=== PATIENT | male | born 1945 | race Asian ===

== ENCOUNTER 2017-03-31 10:44 | Inpatient (IN) | payer OTHER ==
[~2017-03-31] VITALS: Ht 165.1 cm; Wt 80.2 kg
[2017-03-31] MEDS ORDERED: MORPHINE SULFATE 4 MG/ML, 1ML ONE ×2 (11:11→12:11)
[2017-03-31] MEDS ORDERED: NITROGLYCERIN OINT 2%, 1GM TP ONE ×2 (11:11→11:30)
[2017-03-31] MEDS ORDERED: ONDANSETRON 2MG/ML, 2ML ONE (11:11)
[2017-03-31] MEDS: MORPHINE SULFATE 4 MG/ML, 1ML IVPush PRN ×2 (11:20→12:13)
[2017-03-31] MEDS ORDERED: PLEASE ENTER ALLERGIES MC SCH ×2 (11:30)
[2017-03-31] MEDS ORDERED: SODIUM CHLORIDE 0.9% 1,000ML IVBOLUS ONE ×2 (11:30→15:30)
[2017-03-31] MEDS ORDERED: ONDANSETRON 2MG/ML, 2ML IVPush ONE (11:30)
[2017-03-31 11:43] LABS: HEMATOCRIT 50.9 % (39.2-51.8); HEMOGLOBIN 16.6 g/dL (13.7-18.0)
[2017-03-31 11:53] LABS: ASPARTATE AMINO TRANSFERASE 21 U/L (15-37); BLOOD UREA NITROGEN 14 mg/dL (7-18)
[2017-03-31 11:58] LABS: IS PT STATUS REG ER OR PRE ER? YES
[2017-03-31] MEDS ORDERED: CITA20TA9 PO (12:23)
[2017-03-31] MEDS ORDERED: CALC-118 PO (12:23)
[2017-03-31] MEDS ORDERED: HYDR25TA6 PO (12:23)
[2017-03-31] MEDS ORDERED: CITA10TA8 PO (12:23)
[2017-03-31] MEDS ORDERED: ASPI-621 PO (12:23)
[2017-03-31] MEDS ORDERED: FINA5TAB4 PO (12:23)
[2017-03-31] MEDS ORDERED: ASCO500T8 PO (12:23)
[2017-03-31] MEDS ORDERED: TAMS0.4C2 PO (12:23)
[2017-03-31] MEDS ORDERED: LISI-170 PO (12:23)
[2017-03-31] MEDS ORDERED: MAALOX/HYOSCYAMINE/LIDOCAINE 45 ML BTL PO ONE (12:30)
[2017-03-31] MEDS ORDERED: SODIUM CHLORIDE FLUSH 10ML SYR IVF ONE (12:30)
[2017-03-31] MEDS ORDERED: MAALOX/HYOSCYAMINE/LIDOCAINE 45 ML BTL ONE (12:33)
[2017-03-31] MEDS ORDERED: OMNIPAQUE 350 MG/ML, 100ML BOTTLE ONE (12:53)
[2017-03-31] MEDS ORDERED: ACETAMINOPHEN 325 MG TABLET PO PRN (15:30)
[2017-03-31] MEDS ORDERED: ONDANSETRON 2MG/ML, 2ML IVPush PRN (15:30)
[2017-03-31] MEDS ORDERED: ONDANSETRON ODT 4 MG PO PRN (15:30)
[2017-03-31] MEDS ORDERED: morphine SULFATE 10 MG/ML, 1ML IVPush PRN (15:30)
[2017-03-31] MEDS ORDERED: hydrALAzine 20 MG/ML, 1ML ONE (15:35)
[2017-03-31] MEDS: hydrALAzine 20 MG/ML, 1ML IVPush PRN (15:42)
[2017-03-31] MEDS ORDERED: HYDROcodone/APAP 5/325 TABLET ONE (15:58)
[2017-03-31] MEDS: HYDROcodone/APAP 5/325 TABLET PO PRN (16:00)
[2017-03-31 16:02] LABS: IS PT STATUS REG ER OR PRE ER? YES
[2017-03-31] MEDS ORDERED: CEFTRIAXONE PMX 1GM/50ML 50 ML ONE (16:47)
[2017-03-31] MEDS: CEFTRIAXONE PMX 1GM/50ML 50 ML IV SCH (16:58)
[2017-03-31] MEDS: SODIUM CHLORIDE 0.9% 1,000 ML IV SCH (20:07)
[2017-03-31] MEDS: METRONIDAZOLE PMX 500MG/100ML 100 ML IV SCH (20:08)
[2017-03-31] MEDS: HEPARIN 5,000 UNITS/ML, 1ML SQ SCH (20:08)
[2017-03-31] MEDS: ASCORBIC ACID 500 MG TABLET PO SCH (20:09)
[2017-03-31] MEDS: CALCIUM/VITAMIN D3 250-125 TABLET PO SCH (20:09)
[2017-03-31 20:34] VITALS: BP 152/79
[2017-03-31 22:33] LABS: IS PT STATUS REG ER OR PRE ER? NO
[2017-04-01 03:38] VITALS: BP 155/82
[2017-04-01] MEDS: HEPARIN 5,000 UNITS/ML, 1ML SQ SCH ×3 (03:46→23:28)
[2017-04-01] MEDS: METRONIDAZOLE PMX 500MG/100ML 100 ML IV SCH ×3 (03:46→23:28)
[2017-04-01 05:59] LABS: HEMATOCRIT 45.9 % (39.2-51.8); WHITE BLOOD COUNT 10.1 x10^3/uL (3.4-10)
[2017-04-01 06:33] LABS: ASPARTATE AMINO TRANSFERASE 20 U/L (15-37); BLOOD UREA NITROGEN 12 mg/dL (7-18)
[2017-04-01 08:45] VITALS: BP 153/75
[2017-04-01] MEDS: SODIUM CHLORIDE 0.9% 1,000 ML IV SCH ×2 (09:13→21:44)
[2017-04-01] MEDS: PANTOPRAZOLE 40 MG IV IVPush SCH (09:13)
[2017-04-01] MEDS: TAMSULOSIN 0.4 MG CAP.ER.24H PO SCH (09:13)
[2017-04-01] MEDS: LISINOPRIL 20 MG TABLET PO SCH (09:14)
[2017-04-01] MEDS: ASPIRIN 81 MG TABLET EC PO SCH (09:14)
[2017-04-01] MEDS: FINASTERIDE 5 MG TABLET PO SCH (09:14)
[2017-04-01] MEDS: CALCIUM/VITAMIN D3 250-125 TABLET PO SCH ×2 (09:15→21:43)
[2017-04-01] MEDS: CITALOPRAM 10 MG TABLET PO SCH (09:15)
[2017-04-01] MEDS: ASCORBIC ACID 500 MG TABLET PO SCH ×2 (09:15→21:43)
[2017-04-01] MEDS: CEFTRIAXONE PMX 1GM/50ML 50 ML IV SCH (17:29)
[2017-04-01 17:33] VITALS: BP 189/97
[2017-04-01] MEDS: hydrALAzine 20 MG/ML, 1ML IVPush PRN (17:36)
[2017-04-01] MEDS ORDERED: BUPIVACAINE/PF-EPI 0.5% 1:200K ONE (17:53)
[2017-04-01] MEDS ORDERED: FENTANYL PF 250 MCG/5ML ONE (18:25)
[2017-04-01] MEDS ORDERED: MIDAZOLAM 1 MG/ML, 2ML ONE (18:26)
[2017-04-01] MEDS ORDERED: ROCURONIUM 10 MG/ML ONE ×2 (19:11)
[2017-04-01] MEDS ORDERED: ONDANSETRON 2MG/ML, 2ML ONE (19:11)
[2017-04-01] MEDS ORDERED: EPINEPHRINE 1 MG/ML, 1ML ONE (19:11)
[2017-04-01] MEDS ORDERED: PROPOFOL 10 MG/ML, 20ML ONE (19:11)
[2017-04-01] MEDS ORDERED: SUCCINYLCHOLINE 20 MG/ML, 10ML ONE (19:11)
[2017-04-01] MEDS ORDERED: CEFAZOLIN 1,000 MG ONE (19:11)
[2017-04-01] MEDS ORDERED: EPHEDRINE 50 MG/ML, 1ML ONE (19:11)
[2017-04-01] MEDS ORDERED: SUGAMMADEX 200 MG/2 ML IVPush ONE ×2 (19:11→20:15)
[2017-04-01] MEDS ORDERED: DEXAMETHASONE 4 MG/ML, 1ML ONE (19:11)
[2017-04-01] MEDS ORDERED: BUPIVACAINE/PF-EPI 0.5% 1:200K INFIL ONE ×3 (19:46→19:47)
[2017-04-01] MEDS ORDERED: LABETALOL 5MG/ML, 20ML IV PRN (20:00)
[2017-04-01] MEDS ORDERED: ONDANSETRON 2MG/ML, 2ML IVPush PRN ×2 (20:00→21:30)
[2017-04-01] MEDS ORDERED: OXYcodone 5 MG/5 ML ORAL.SOL UDC PO PRN (20:00)
[2017-04-01] MEDS ORDERED: METOCLOPRAMIDE 5 MG/ML, 2ML IV PRN (20:00)
[2017-04-01] MEDS ORDERED: hydrALAzine 20 MG/ML, 1ML IV PRN (20:00)
[2017-04-01] MEDS ORDERED: ACETAMINOPHEN 325 MG TABLET PO PRN (20:00)
[2017-04-01] MEDS ORDERED: HYDROmorphone 1 MG/ML, 1ML IV PRN (20:00)
[2017-04-01] MEDS: FENTANYL PF 100 MCG/2ML IV PRN ×2 (20:25→20:33)
[2017-04-01] MEDS ORDERED: FENTANYL PF 100 MCG/2ML ONE (20:26)
[2017-04-01] MEDS ORDERED: ACETAMINOPHEN 650 MG/20.3 ML UDC ONE (20:26)
[2017-04-01] MEDS ORDERED: OXYcodone 5 MG/5 ML ORAL.SOL UDC ONE (20:26)
[2017-04-01 21:13] VITALS: BP 164/83
[2017-04-01] MEDS ORDERED: morphine SULFATE 10 MG/ML, 1ML IVPush PRN (21:30)
[2017-04-01] MEDS ORDERED: OXYcodone/APAP 5/325MG TABLET PO PRN (21:30)
[2017-04-01] MEDS: HYDROcodone/APAP 5/325 TABLET PO PRN (21:43)
[2017-04-02] VITALS: BP 124/74
[2017-04-02] MEDS: SODIUM CHLORIDE 0.9% 1,000 ML IV SCH (05:33)
[2017-04-02 06:23] VITALS: BP 178/98
[2017-04-02] MEDS: hydrALAzine 20 MG/ML, 1ML IVPush PRN (06:31)
[2017-04-02] MEDS: HYDROcodone/APAP 5/325 TABLET PO PRN (07:47)
[2017-04-02] MEDS: METRONIDAZOLE PMX 500MG/100ML 100 ML IV SCH (07:48)
[2017-04-02] MEDS: PANTOPRAZOLE 40 MG IV IVPush SCH (07:52)
[2017-04-02] MEDS: HEPARIN 5,000 UNITS/ML, 1ML SQ SCH (07:52)
[2017-04-02] MEDS: CITALOPRAM 10 MG TABLET PO SCH (08:16)
[2017-04-02] MEDS: ASPIRIN 81 MG TABLET EC PO SCH (08:16)
[2017-04-02] MEDS: LISINOPRIL 20 MG TABLET PO SCH (08:16)
[2017-04-02] MEDS: CALCIUM/VITAMIN D3 250-125 TABLET PO SCH (08:16)
[2017-04-02] MEDS: FINASTERIDE 5 MG TABLET PO SCH (08:17)
[2017-04-02] MEDS: ASCORBIC ACID 500 MG TABLET PO SCH (08:17)
[2017-04-02] MEDS: TAMSULOSIN 0.4 MG CAP.ER.24H PO SCH (08:17)
[2017-04-02 10:00] VITALS: BP 128/72
[2017-04-02] MEDS ORDERED: OXYC1TAB7 PO (10:04)
== END 2017-04-02 12:05 | disposition home or self-care (01) | DRG 418 ==
LOC: ED 11:44 → EDIP 15:21 → 4EST 18:12 → DCLOUNGE 04-02 11:42
PROVIDERS: ADMIT Internal Medicine; ATTEND Internal Medicine
PROC: 0FT44ZZ Resection of Gallbladder, Percutaneous Endoscopic Approach (ICD-10-PCS; principal; 2017-04-01 19:00)
DX: K80.00 Calculus of gallbladder with acute cholecystitis without obstruction (principal); E87.1 Hypo-osmolality and hyponatremia; R65.10 Systemic inflammatory response syndrome (SIRS) of non-infectious origin without acute organ dysfunction; K82.1 Hydrops of gallbladder; E66.01 Morbid (severe) obesity due to excess calories; I11.9 Hypertensive heart disease without heart failure; F32.9 Major depressive disorder, single episode, unspecified; R33.8 Other retention of urine; N40.1 Benign prostatic hyperplasia with lower urinary tract symptoms; R73.9 Hyperglycemia, unspecified; E74.39 Other disorders of intestinal carbohydrate absorption
CPT/HCPCS: 36415; 71010; 71275; 74181; 76700; 78226; 80053; 81003; 83690; 83735; 83880; 84100; 84484; 85025; 86677; 87040; 88304; 93005; 96361; 96374; 96375; 96376; J0171; J0690; J0696; J1100; J1644; J2250; J2405; J2704; J3010; Q9967; A9537; C9113; C9898; J0330; J0360; J7030